=== PATIENT | male | born 1975 | race African-American/Black ===

== ENCOUNTER 2017-12-19 23:35 | Inpatient (IN) | payer OTHER, SELFPAY ==
[~2017-12-19 23:35] MED LIST: ISOVUE-370 76%-LOCM 1 ML ONE
[2017-12-19] MEDS ORDERED: Lorazepam 2 MG/ML VIAL ONE (23:43)
[2017-12-19 23:56] LABS: #Basophils 0.1 thou/uL (0.0-0.2); #Eosinphils 0.3 thou/uL (0.0-0.7); #Lymphocytes 5.1 thou/uL (1.20-3.40); #Monocytes 0.5 thou/uL (0.11-0.59); #Neutrophils 8.5 thou/uL (1.40-6.50); %Basophils 0.5 % (0.0-1.0); %Eosinophils 1.8 % (0.0-10.0); %Lymphocytes 35.4 % (21.0-51.0); %Monocytes 3.6 % (0.0-10.0); %Neutrophils 58.7 % (42.0-75.0); Hemoglobin 15.8 g/dL (14.0-18.0); Mean Corpuscular HGB CONC 32.7 g/dL (32.0-36.0); Mean Corpuscular Hemoglobin 26.4 pg (27.0-31.0); Mean Corpuscular Volume 80.6 fl (80.0-94.0); Mean Platelet Volume 8.2 fL (7.4-10.4); Platelet Count 391 thou/uL (130-400); RBC Distribution Width 13.8 % (11.5-14.5); Red Blood Cell (RBC) Count 5.99 mill/uL (4.70-6.10); White Blood Cell (WBC) Count 14.5 thou/uL (4.8-10.8)
--- NOTE | 2017-12-20 00:08 | RAD ---
AP VIEW CHEST: 12/19/17 HISTORY: Chest pain, trauma. AP view chest is obtained. The lungs are well aerated. No evidence of active intrathoracic disease seen. No evidence of effusion s, pneumonia, or pneumothorax seen. IMPRESSION: Unremarkable AP view chest. POS: [facility]
[2017-12-20 00:12] LABS: ALT (SGPT) 36 U/L (8-55); AST (SGOT) 28 U/L (5-34); Albumin 4.9 g/dL (3.5-5.0); Alkaline Phosphatase 88 U/L (40-150); BUN (Urea Nitrogen) 16 mg/dL (8.9-20.6); Bilirubin, Total 0.2 mg/dL (0.2-1.2); Calc. Creatinine Clearance 0 mL/min (70-130); Calcium 10.3 mg/dL (7.8-10.44); Chloride 108 mmol/L (98-107); Estimated GFR-MDRD 38; Globulin 3.1 g/dL (2.4-3.5); Glucose 181 mg/dL (70-105); Potassium 4.6 mmol/L (3.5-5.1); Sodium 142 mmol/L (136-145)
[2017-12-20] MEDS ORDERED: Midazolam HCl 5 mg/ml Vial ONE (00:12)
[2017-12-20 00:13] LABS: Magnesium 3.9 mg/dL (1.6-2.6)
[2017-12-20 00:16] LABS: Carbon Dioxide Less than 8 mmol/L (22-29)
[2017-12-20 00:17] LABS: Acetaminophen Less than 6.0 mcg/mL (10.0-30.0); Alcohol Less than 10 mg/dL (Less than 10); Salicylate Less than 8.0 mg/dL (15.0-30.0)
[2017-12-20 00:20] LABS: CKMB 1.4 ng/mL (0-6.6); Troponin I Less than 0.010 ng/mL (< 0.028)
[2017-12-20 00:31] LABS: Bilirubin Negative (Negative); Blood, Urine Moderate (Negative); Clarity CLEAR (Clear); Glucose, Urine (Dipstick) Negative (Negative); Leukocyte Negative (Negative); Nitrite Negative (Negative); Protein, Urine (Dipstick) 100 mg/dL (Neg-Trace); Specific Gravity, Urine 1.029 (1.002-1.036); pH, Urine 5.5 (5.0-9.0)
[2017-12-20 00:34] LABS: Bacteria/HPF None Seen HPF (None Seen); RBC/HPF 0-3 HPF (0-3)
[2017-12-20 00:37] LABS: Hyaline Casts/LPF 0-3 HYALINE CAST LPF (0-3 Hyaline); Other Casts/LPF None Seen LPF (0-3 Hyaline); Pathc Cast-AUWi Flag 3.92 (0-2.49)
[2017-12-20 00:38] LABS: Oval Fat Bodies/HPF None Seen HPF (None Seen); Renal Epithelial 0-3 HPF (0-3); Sperm/HPF None Seen HPF (None Seen); Transitional Epithelial NONE SEEN HPF (0-3); Trichomonas/HPF None Seen HPF (None Seen); Yeast-All Forms None Seen HPF (None Seen)
[2017-12-20 00:40] LABS: Amphetamine Not Detected (NotDetected); Barbiturates Screen Not Detected (NotDetected); Benzodiazepine Screen Not Detected (NotDetected); Cocaine Metabolite Screen Detected (NotDetected); Medtox Control Line Valid? VALID (VALID); Medtox Reader # READER 1; Methadone Not Detected (NotDetected); Methamphetamine Not Detected (NotDetected); Opiate Screen Not Detected (NotDetected); Oxycodone Screen Not Detected (NotDetected); Phencyclidine (PCP) Detected (NotDetected); THC/Cannabinoid Screen Detected (NotDetected); Tricyclic Screen Not Detected (NotDetected)
[2017-12-20] MEDS ORDERED: Ondansetron HCl/PF 4 MG/2 ML Vial IVP PRN ×2 (03:37→03:53)
[2017-12-20] MEDS ORDERED: Ondansetron ODT 4 MG TAB SL PRN (03:37)
[2017-12-20 03:48] VITALS: BMI 28.0
[2017-12-20] MEDS ORDERED: Senokot 8.6 MG TAB PO PRN (03:53)
[2017-12-20] MEDS ORDERED: Zolpidem Tartrate 5 MG TAB PO PRN (03:53)
[2017-12-20] MEDS ORDERED: Lorazepam 1 MG TAB PO PRN (03:53)
[2017-12-20] MEDS ORDERED: Lorazepam 2 MG/ML VIAL SLOW IVP PRN (03:53)
[2017-12-20] MEDS ORDERED: Mag-Al 1200 mg/1200 mg/30 ML UDCUP PO PRN (03:53)
[2017-12-20] MEDS ORDERED: Calcium Carbonate 500 MG ChewTAB PO PRN (03:53)
[2017-12-20] MEDS ORDERED: Loperamide HCl 2 MG CAP PO PRN (03:53)
[2017-12-20] MEDS ORDERED: Ondansetron ODT 4 MG TAB PO PRN (03:53)
[2017-12-20] MEDS ORDERED: Milk Of Magnesia 30 ML UDCUP PO PRN (03:53)
[2017-12-20] MEDS ORDERED: HYDROcodone/Acetaminophen 5/325 mg Tablet PO PRN (03:53)
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
[2017-12-20] MEDS: Dextrose 5 %-0.45 % NaCl 1,000 ML IV SCH ×3 (04:31→20:03)
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
[2017-12-20] MEDS: Heparin 5,000 UNITS/ML VIAL SC SCH ×2 (09:24→20:02)
[2017-12-20] MEDS: Famotidine 20 MG TAB PO SCH (09:24)
[2017-12-20 10:59] LABS: #Eosinphils 0.1 thou/uL (0.0-0.7); #Lymphocytes 2.3 thou/uL (1.20-3.40); #Monocytes 0.4 thou/uL (0.11-0.59); #Neutrophils 9.5 thou/uL (1.40-6.50); %Basophils 0.1 % (0.0-1.0); %Eosinophils 0.7 % (0.0-10.0); %Lymphocytes 18.5 % (21.0-51.0); %Monocytes 3.5 % (0.0-10.0); %Neutrophils 77.3 % (42.0-75.0); Hemoglobin 13.8 g/dL (14.0-18.0); Mean Corpuscular HGB CONC 32.5 g/dL (32.0-36.0); Mean Corpuscular Hemoglobin 25.7 pg (27.0-31.0); Mean Corpuscular Volume 79.1 fl (80.0-94.0); Mean Platelet Volume 7.8 fL (7.4-10.4); Platelet Count 311 thou/uL (130-400); RBC Distribution Width 13.8 % (11.5-14.5); Red Blood Cell (RBC) Count 5.38 mill/uL (4.70-6.10); White Blood Cell (WBC) Count 12.3 thou/uL (4.8-10.8)
[2017-12-20 11:05] LABS: INR-International Normal Ratio 1.1; PTT 27.7 SEC (22.9-36.1); Prothrombin Time 14.2 SEC (12.0-14.7)
[2017-12-20 11:16] LABS: Anion Gap 10 mmol/L (10-20); BUN (Urea Nitrogen) 10 mg/dL (8.9-20.6); Calc. Creatinine Clearance 99 mL/min (70-130); Calcium 8.1 mg/dL (7.8-10.44); Carbon Dioxide 23 mmol/L (22-29); Chloride 113 mmol/L (98-107); Estimated GFR-MDRD 80; Glucose 108 mg/dL (70-105); Magnesium 2.8 mg/dL (1.6-2.6); Potassium 3.7 mmol/L (3.5-5.1); Sodium 142 mmol/L (136-145)
[2017-12-20 11:21] LABS: Troponin I Less than 0.010 ng/mL (< 0.028)
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
[2017-12-20] MEDS: Lactated Ringer's 1,000 ML IV SCH (12:31)
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
[2017-12-20 14:16] LABS: Creatinine, Urine 90.02 mg/dL (63-166); Protein, Urine Random Quant Less than 10 mg/dL; Sodium, Urine 140 mmol/L (Not Available)
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
[2017-12-21] MEDS: Dextrose 5 %-0.45 % NaCl 1,000 ML IV SCH (03:56)
[2017-12-21] MEDS: Acetaminophen 325 MG TAB PO PRN ×2 (04:01→09:22)
[2017-12-21 05:37] LABS: #Basophils 0.1 thou/uL (0.0-0.2); #Eosinphils 0.2 thou/uL (0.0-0.7); #Lymphocytes 2.8 thou/uL (1.20-3.40); #Monocytes 0.4 thou/uL (0.11-0.59); #Neutrophils 3.8 thou/uL (1.40-6.50); %Basophils 0.7 % (0.0-1.0); %Eosinophils 2.9 % (0.0-10.0); %Lymphocytes 38.3 % (21.0-51.0); %Monocytes 5.5 % (0.0-10.0); %Neutrophils 52.5 % (42.0-75.0); Hemoglobin 13.5 g/dL (14.0-18.0); Mean Corpuscular Hemoglobin 26.4 pg (27.0-31.0); Mean Platelet Volume 7.9 fL (7.4-10.4); Platelet Count 297 thou/uL (130-400); RBC Distribution Width 13.5 % (11.5-14.5); Red Blood Cell (RBC) Count 5.11 mill/uL (4.70-6.10); White Blood Cell (WBC) Count 7.3 thou/uL (4.8-10.8)
[2017-12-21 05:57] LABS: ALT (SGPT) 31 U/L (8-55); AST (SGOT) 58 U/L (5-34); Albumin 3.6 g/dL (3.5-5.0); Alkaline Phosphatase 64 U/L (40-150); Anion Gap 9 mmol/L (10-20); BUN (Urea Nitrogen) 5 mg/dL (8.9-20.6); Bilirubin, Total 0.4 mg/dL (0.2-1.2); Calc. Creatinine Clearance 127 mL/min (70-130); Calcium 8.1 mg/dL (7.8-10.44); Carbon Dioxide 24 mmol/L (22-29); Chloride 110 mmol/L (98-107); Estimated GFR-MDRD Greater than 90; Globulin 2.6 g/dL (2.4-3.5); Glucose 98 mg/dL (70-105); Potassium 3.5 mmol/L (3.5-5.1); Protein, Total 6.2 g/dL (6.0-8.3); Sodium 139 mmol/L (136-145)
[2017-12-21] MEDS: Famotidine 20 MG TAB PO SCH (09:22)
[2017-12-21] MEDS: Heparin 5,000 UNITS/ML VIAL SC SCH (09:22)
[2017-12-21 12:02] VITALS: BP 124/77; TEMP 98.3
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
== END 2017-12-21 12:34 | DRG 896 ==
LOC: ERS 23:35 → 2NO 12-20 03:27
PROVIDERS: ADMIT Internal Medicine; ATTEND Internal Medicine
DX: F19.129 Other psychoactive substance abuse with intoxication, unspecified (principal); G92 Toxic encephalopathy; N17.9 Acute kidney failure, unspecified; M62.82 Rhabdomyolysis; E87.2 Acidosis; E86.0 Dehydration; K21.9 Gastro-esophageal reflux disease without esophagitis; I10 Essential (primary) hypertension; D64.9 Anemia, unspecified; F10.129 Alcohol abuse with intoxication, unspecified; R41.82 Altered mental status, unspecified; R00.0 Tachycardia, unspecified; D72.829 Elevated white blood cell count, unspecified
CPT/HCPCS: 36415; 51701; 70450; 71045; 72125; 74177; 80048; 80053; 80306; 80307; 81003; 81015; 82010; 82553; 82570; 83605; 83735; 84156; 84300; 84484; 85025; 85610; 85730; 86850; 86900; 86901; 93005; 94760; 96361; 96374; 96375; 99406; J1644; J2060; J2250